=== PATIENT | male | born 1960 | race Caucasian/White ===

== ENCOUNTER 2021-11-23 16:27 | Emergency (ER) | payer OTHER ==
[~2021-11-23] VITALS: Ht 188 cm; Wt 107.0 kg
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
[2021-11-23 17:34] LABS: URINE BILIRUBIN NEGATIVE (Negative); URINE BLOOD NEGATIVE (Negative); URINE CLARITY CLEAR; URINE COLOR YELLOW; URINE GLUCOSE-RANDOM* NEGATIVE (Negative); URINE KETONES NEGATIVE (Negative); URINE LEUKOCYTES-REFLEX NEGATIVE (Negative); URINE NITRITE-REFLEX NEGATIVE (Negative); URINE PROTEIN (DIPSTICK) NEGATIVE (Negative); URINE SPECIFIC GRAVITY 1.015 (1.005-1.035); URINE UROBILINOGEN 0.2 E.U./dl (0.2-1.0)
[2021-11-23 17:36] LABS: ABSOLUTE NEUTROPHILS 5.6 thou/uL (1.4-8.2); BASOPHILS 0.9 % (0.0-2.0); EOSINOPHILS 1.8 % (0.0-3.0); HEMATOCRIT 38.1 % (42.0-52.0); HEMOGLOBIN 12.8 gm/dL (14.0-18.0); LYMPHOCYTES 14.3 % (24.0-44.0); MCH 29.6 pg (26.0-34.0); MCHC 33.5 g/dL (28.0-37.0); MCV 88.5 fL (80.0-100.0); MONOCYTES 5.4 % (1.0-8.0); PLATELET COUNT 406 thou/uL (150-400); POLYS 77.6 % (36.0-66.0); RBC 4.31 mil/uL (4.50-6.00); RDW 13.7 % (10.5-14.5); WBC 7.2 thou/uL (4.0-11.0)
[2021-11-23 17:49] LABS: ANION GAP 11 mmol/L (7-16); BUN 10 mg/dL (7-18); CALCIUM 8.6 mg/dL (8.5-10.1); CHLORIDE 101 mmol/L (98-107); CO2 25 mmol/L (21-32); CREATININE 0.8 mg/dL (0.7-1.3); GLUCOSE 131 mg/dL (74-106); POTASSIUM 3.5 mmol/L (3.5-5.1); SODIUM 137 mmol/L (136-145)
[2021-11-23 17:50] LABS: APTT 26.2 Seconds (24.5-32.8); INR 1.02; PROTIME 11.1 Seconds (10.5-12.1)
[2021-11-23 18:00] LABS: ALBUMIN 3.4 g/dL (3.4-5.0); AMYLASE 59 U/L (25-115); DIRECT BILIRUBIN < 0.1 mg/dL (<0.1-0.2); LIPASE 119 U/L (73-393); SGOT 26 U/L (15-37); SGPT 31 U/L (16-63); TOTAL BILIRUBIN 0.2 mg/dL (0.2-1.0); TOTAL PROTEIN 6.7 g/dL (6.4-8.2)
[2021-11-23] MEDS ORDERED: METHOCARBAMOL500 M2 PO (19:17)
[2021-11-23] MEDS ORDERED: TYLENOL325 M1 PO (19:17)
[2021-11-23] MEDS ORDERED: NAPROSYN500 MG PO (19:17)
[2021-11-23 19:52] VITALS: BP 140/85
--- NOTE | 2021-11-24 08:01 | EKG ---
[place] [address] [employer] [facility] [place] [address] ELECTROCARDIOGRAM REPORT Name: KELBY,SUSAN Room #[id number] Admission: 11/23/21 Attend Phys: Discharge: 11/23/21 Date of : 60 Report #: [id number] [facility] ED Test Date: 2021-11-23 Test Time: 17:31:30 Pat Name: SUSAN LAMA Department: Room: Gender: Manager Hvac: MARIBELL : 1960 Requested By: Levon Bustillo Order Number: [id number] MD: Ahmet Anderson Measurements Intervals [place]wey Rate: 89 P: 31 MS: 169 QRS: -24 QRSD: 99 T: 75 QT: 366 QTc: 446 Interpretive Statements Sinus rhythm Borderline left axis deviation Borderline T wave abnormalities Baseline wander in lead(s) V1 No previous ECG available for comparison Electronically Signed On 11-24-2021 8:01:43 [employer] by Ahmet Anderson [email or web address] <ELECTRONICALLY SIGNED> By: Ahmet Anderson MD, [facility] 11/24/21 0801 1731 1731 Ahmet Anderson MD, FACC /EPI
== END 2021-11-23 19:52 | disposition home or self-care (01) ==
LOC: ER 16:27
PROVIDERS: Emergency Medicine
DX: S01.411A Laceration without foreign body of right cheek and temporomandibular area, initial encounter (principal); S60.221A Contusion of right hand, initial encounter; R07.89 Other chest pain; Z98.890 Other specified postprocedural states; V49.3XXA Car occupant (driver) (passenger) injured in unspecified nontraffic accident, initial encounter; Y93.89 Activity, other specified; Y92.89 Other specified places as the place of occurrence of the external cause; Y99.8 Other external cause status